=== PATIENT | female | born 1985 | race Caucasian/White ===

== ENCOUNTER 2018-04-10 19:25 | Inpatient (IN) | payer OTHER ==
[~2018-04-10] VITALS: Ht 165.1 cm; Wt 135.6 kg
[2018-04-10] MEDS ORDERED: FAMOTIDINE(*) 20MG/50ML PREMIX 50 ML IVPB PRN (19:28)
[2018-04-10] MEDS ORDERED: METOCLOPRAMIDE 10 MG/2 ML SDV IVP PRN (19:30)
[2018-04-10] MEDS ORDERED: LIDOCAINE/SOD BICARB 8.4% SYR SC PRN (19:30)
[2018-04-10] MEDS ORDERED: LIDOCAINE 1% LOCAL 300 MG/30ML INJ PRN (19:30)
[2018-04-10] MEDS ORDERED: TERBUTALINE SULF 1 MG/ML VIAL SUBQ PRN (19:30)
[2018-04-10] MEDS ORDERED: FLUSH 10 ML SYR IVP PRN (19:30)
[2018-04-10 20:00] VITALS: BP 126/60; Ht 165.1 cm; Wt 135.6 kg
[2018-04-10] MEDS ORDERED: DLR(*) 1000 ML BAG 1,000 ML IV PRN (20:43)
[2018-04-10] MEDS ORDERED: DINOPROSTONE 10 MG INSERT PV ONE (20:45)
[2018-04-10 20:46] LABS: PLATELET COUNT, AUTOMATED 257 K/uL (150-450)
[2018-04-10] MEDS: LR(*) 1000 ML BAG 1,000 ML IV PRN (21:06)
[2018-04-10] MEDS ORDERED: PREN-127 PO (22:42)
[2018-04-11] MEDS: LR(*) 1000 ML BAG 1,000 ML IV PRN ×2 (07:47→14:32)
[2018-04-11] MEDS ORDERED: OXYTOCIN 30 UNIT/D5LR 500 ML 500 ML IV PRN (08:02)
[2018-04-11] MEDS ORDERED: BUPIVACAINE 0.25% MPF INJ EPI PRN (10:35)
[2018-04-11] MEDS ORDERED: LIDOCAINE/PF 2% 200MG/10ML AMP 200 MG/10 ML AMPUL EPI PRN (10:35)
[2018-04-11] MEDS ORDERED: EPIDURAL KEYS XX PRN (10:35)
[2018-04-11] MEDS ORDERED: FENTANYL/ROPIVACAINE 100 ML BAG EPI PRN (10:35)
[2018-04-11] MEDS ORDERED: BUPIVACAINE 0.5% INJ 30ML VIAL EPI PRN (10:35)
[2018-04-11] MEDS ORDERED: LIDO/EPI 2% MPF 1:200,000 20ML EPI PRN (10:35)
--- NOTE | 2018-04-11 10:38 | History & Physical ---
History of Present Illness Age of Patient: 32 : 1 Para or TPAL: 0 EDC per LMP: Apr 14, 2018 Estimated Gestational Age: 37 Chief Complaint Labor induction History of Present Illness Presented last night for IOL due to increasing BP. complicated by obesity with a BMI 41, anti-S AB positive but monthly titers were negative, RH negative. Was here last night with cervix 1.5 cm and Cervidil placed. Past Med ical, Surgical, Family and Obstetric Histories reviewed. Please see ACOG chart. History Allergies: Coded Allergies: BEE STINGS (Verified Allergy, Severe, ANAPHYLAXIS, 04/10/18) Med Rec Home Meds Reported Medications Vits W-Ca,Fe,Fa(<1MG) ( VITAMINS) 1 Each Tablet, 1 EACH PO DAILY, TAB 04/10/18 Review of Systems All Systems Reviewed/Normal: Yes, Except as Noted Exam General Exam Vital Signs Vital Signs Date Time Temp Pulse Resp B/P (MAP) Pulse Ox O2 Delivery O2 Flow Rate FiO2 04/10/18 20:00 98.4 108 20 126/60 (82) 93 Room Air General Apperance: Alert/Awake/No Acute Distress Neuro: No Gross deficits Eyes: Normal Extraocular Movement & Vison Cardiovascular: Regular Rate and Rhythm Respiratory: No Respiratory Distress Abdomen: Soft, Non-Tender, Non-Distended Integumentary: Skin Intact without Lesions or Rash Psychological: Alert & Oriented X3, Appropriate Mood & Affect Cervical Dialation: 4 Cervical Effacement (%): 80 Cervical Consistency: Soft Cervical Position: Anterior Station: -2 Presentation: Vertex Uterine Contractions(Q min): 2 Uterine Contraction Strength: Moderate Fetus Heart Tone Variabilty: Moderate FHT Accelerations: 15X15 FHT Category: I Medical Decision Making Data Points Result Diagram: 04/10/18201904/10/182019 VTE Prophylasis: Adult Deep Vein Thrombosis/Pulmonary: No Assessment and Plan EMERGENCY DEPARTMENT TECHNICIAN Plan: Routine Labor/Induct Care Problems: (1) Obesity, morbid, BMI 40.0-49.9 Assessment & Plan: Type and screen blood. Will have uterotonics ready for risk of PP hemorrhage. (2) Gestational hypertension Assessment & Plan: Has been transitioned to Pitocin and advancing. Difficult to doppler FHTs so scalp electrode placed with AROM. Clear fluid noted with chunks of vernix. Expecting . Problem Qualifiers (1) Gestational hypertension: Trimester: third trimester Qualified Codes: O13.3 - Gestational [- induced] hypertension without significant proteinuria, third trimester AMADOR ZHENG MD Apr 11, 2018 10:38
[2018-04-11] MEDS: fentaNYL CITR 100 MCG/2 ML AMP IVP PRN ×2 (11:42→13:16)
--- NOTE | 2018-04-11 13:31 | Anesthesia OB Pre-Anes Eval ---
History of Present Illness Anesthesia Start Time: 11:54 OB Anesthesia Diagnosis: induction - elective EDC: Apr 14, 2018 : 1 Para: 0 Pain Ratin Heart Tones: 156 Result Diagram: 04/10/18201904/10/182019 Height (Inches): 65.00 Weight (Pounds): 299 BMI Calculated: 49.75 Past Medical History Medical History: no pertinent history Surgical History: cholecystectomy, tonsillectomy Previous Anesthesia: general, epidural (1st ) Attended Childbirth Classes?: No Hx Anesthesia Reactions: No Hx Family Anesthesia Reaction: No Current Medications: pitocin Home Meds Reported Medications Vits W-Ca,Fe,Fa(<1MG) ( VITAMINS) 1 Each Tablet, 1 EACH PO DAILY, TAB 04/10/18 Allergies: Coded Allergies: BEE STINGS (Verified Allergy, Severe, ANAPHYLAXIS, 04/10/18) Anesthesia OB ROS Airway Class: ll GI ROS: clear liquids Last Solids Date: Apr 11, 2018 Last Solids Time: 05:30 ASA Classification: 2 Assessment and Plan Anesthesia Plan: SHERI SMITH CRNA Apr 11, 2018 13:31
--- NOTE | 2018-04-11 13:33 | Procedure Note ---
Anesthetic Placement Note Anesthesia Plan: LEB Permit for Anesthesia Signed: Yes Anesthesia Technique: Patient Sitting Anesthesia Prep: Betadine Interspace: L 3-4 Local Anesthetic: 1% Lidocaine, 25 Gauge Needle Amount Local - cc's: 3 Anesthesia Needle: 17g Touhy/Schliff Anesthesia Attempts: 1 Loss of Resistance: Normal Saline Depth of YUSUF (cm): 6 Epidural Needle Placement: No CSF, No Blood, No Parasthesia Catheter Insertion (cm): 13 Catheter Type: Avendano - Spring Wound Epidural Dressing: Tegaderm, Tape, Adhesive [place] Anesthesia Tray: Lot Number ([id number]), Expiration Date (2019-03-18), Reference Number ([id number]) SHERI RAMSEY CRNA Apr 11, 2018 13:33
--- NOTE | 2018-04-11 13:34 | Anesthesia Progress Note ---
Progress/Maintenance Pain Intensity: 0 Pump Rate (ML/HR): 6 (from 10 to 6) Motor Level: Bending Knees-Bilateral Dilatation: 4 Position: Left, Tilt Anesthesia Treatment: patient BP treat w/ ephedrine. base rate from 10 to 6 ml/hr Assessment and Plan Anesthesia Plan: SHERI SMITH SCARF GLUER Apr 11, 2018 13:34
--- NOTE | 2018-04-11 13:37 | Procedure Note ---
Anesthetic Placement Note Anesthesia Plan: LEB Anesthesia Medications: Epidural Test Dose: 1.5 Lido/Epi (1:200,000), Dose - mL (3), Time (1221), Negative Epidural Loading Dose: 0.25% Marcaine, Dose - ml (10), Time (1227 and 1230) Epidural Infusion: 0.2% Ropivicaine, With Fentanyl 2mcg/ml, Start Time: (1234) Epidural Pump Setting: Bolus Dose - mL (5), Lockout - Minutes (15), Maintenance Rate - mL/hr (10), Maximum per Hour - mL (30) Complications: None SHERI RAMSEY CRNA Apr 11, 2018 13:37
--- NOTE | 2018-04-11 14:17 | Anesthesia Progress Note ---
Progress/Maintenance Pump Rate (ML/HR): 4 (6 ml to 4. patient not feeling contractions.) Position: Right, Tilt Assessment and Plan Anesthesia Plan: SHERI SMITH CRNA Apr 11, 2018 14:17
[2018-04-11] MEDS: fentaNYL CITR 100 MCG/2 ML AMP IT PRN ×2 (14:27→15:00)
--- NOTE | 2018-04-11 15:49 | Anesthesia OB Pre-Anes Eval ---
History of Present Illness Anesthesia Start Time: 14:27 OB Anesthesia Diagnosis: induction - elective Current Complication: obesity EDC: Apr 14, 2018 : 1 Para: 0 Pain Ratin Heart Tones: 147 Result Diagram: 04/10/18201904/10/182019 Height (Inches): 65.00 Weight (Pounds): 299 BMI Calculated: 49.75 Past Medical History Medical History: obesity Surgical History: noncontributory (wisdom teeth) Previous Anesthesia: general Attended Childbirth Classes?: No Hx Anesthesia Reactions: No Hx Family Anesthesia Reaction: No Current Medications: pitocin Home Meds Reported Medications Vits W-Ca,Fe,Fa(<1MG) ( VITAMINS) 1 Each Tablet, 1 EACH PO DAILY, TAB 04/10/18 Allergies: Coded Allergies: BEE STINGS (Verified Allergy, Severe, ANAPHYLAXIS, 04/10/18) Anesthesia OB ROS Neurological: No migraines/headaches, No seizures, No neuropathy, No other Pulmonary: No asthma, No smoker (pks/day/yrs), No other Airway Class: ll Cardiovascular ROS: No edema, No arrhythmia, No other GI ROS: clear liquids Last Solids Date: Apr 10, 2018 Last Solids Time: 17:30 ROS: No Herpes, No STD(s), No Liver Disease, No Renal Disease, No Other Endocrine ROS: No diabetes, No gestational diabetes, No thyroid disorder, No other Musculoskeletal ROS: No low back pain, No low back injury, No scoliosis, No other ASA Classification: 3 (Obesity) Assessment and Plan Anesthesia Plan: SHERI SMITH CRNA Apr 11, 2018 15:49
--- NOTE | 2018-04-11 15:52 | Procedure Note ---
Anesthetic Placement Note Anesthesia Plan: LEB Permit for Anesthesia Signed: Yes Anesthesia Technique: Patient Sitting Anesthesia Prep: Betadine Interspace: L 3-4 Local Anesthetic: 1% Lidocaine, 25 Gauge Needle Amount Local - cc's: 3 Anesthesia Needle: 17g Touhy/Schliff Anesthesia Attempts: 1 Loss of Resistance: Normal Saline Depth of YUSUF (cm): 6 Epidural Needle Placement: No CSF, No Blood, No Parasthesia Catheter Insertion (cm): 13 Catheter Type: Avendano - Spring Wound Epidural Dressing: Tegaderm, Tape, Adhesive [place] Anesthesia Tray: Lot Number ([id number]), Expiration Date (2019-04-18), Reference Number ([id number]) Anesthesia Medications: Epidural Test Dose: 1.5 Lido/Epi (1:200,000), Dose - mL (3), Time (1449), Negative Epidural Loading Dose: 0.25% Marcaine, Dose - ml (10), Time (1456) Epidural Infusion: 0.2% Ropivicaine, With Fentanyl 2mcg/ml, Start Time: (1503) Epidural Pump Setting: Bolus Dose - mL (5), Lockout - Minutes (15), Maintenance Rate - mL/hr (12), Maximum per Hour - mL (32) Complications: None SHERI RAMSEY CRNA Apr 11, 2018 15:52
--- NOTE | 2018-04-11 16:21 | Anesthesia Progress Note ---
Progress/Maintenance Anesthesia Note Date: Apr 11, 2018 Anesthesia Note Time: 16:15 Pain Intensity: 0 Pump: On Pump Rate (ML/HR): 12 Sensory Level: T-2 Motor Level: Other (Both legs very heavy) Dilatation: 4 Assessment and Plan Assessment Assumed care at 1600. Level of epidural T-2 assessed with alcohol. Pump rate turn to 1/hr until pt. does feel contractions again. СЕРГЕЙ CUELLO CRNA Apr 11, 2018 16:21
--- NOTE | 2018-04-11 16:45 | Anesthesia Progress Note ---
Progress/Maintenance Anesthesia Note Date: Apr 11, 2018 Anesthesia Note Time: 16:40 Pain Intensity: 4 Pump: On Pump Rate (ML/HR): 1 Sensory Level: T-4 Dilatation: 4 Position: Right, Tilt Assessment and Plan Assessment Pt. states she is feeling contractions, rates them as a "4". States she pushed her epidural button and notes a little improvement. Observed pt. thru several contractions. Unable to note any facial expressions with contractions. States she feels "pressure". СЕРГЕЙ CUELLO CRNA Apr 11, 2018 16:44
--- NOTE | 2018-04-11 17:33 | Anesthesia Progress Note ---
Progress/Maintenance Anesthesia Note Date: Apr 11, 2018 Anesthesia Note Time: 17:20 Pain Intensity: 6 Pump: On Pump Rate (ML/HR): 5 Dilatation: 10 Drug Bolus: 0.5% Marcaine (5 ml), Other (Fentenyl 50 mcgs) Anesthesia Treatment: Bolus given and rate of pump increased to 5 ml. Assessment and Plan Assessment Pt. c/o very strong pressure and wanting to push. Bolus given and requested RN to recheck pt. Family working to help pt. with slow, deep respirations. СЕРГЕЙ CUELLO CRNA Apr 11, 2018 17:33
[2018-04-11] MEDS ORDERED: MISOPROSTOL 200 MCG TAB PR ONE (19:00)
[2018-04-11] MEDS ORDERED: HYDROCORTISONE 2.5% CR 30GM TB PR PRN (19:25)
[2018-04-11] MEDS ORDERED: GLYCERIN/WITCH HAZEL LEAF 1 PK TOP PRN (19:25)
[2018-04-11] MEDS ORDERED: INFLUENZA VIRUS VAC 0.5 ML SYR IM ONLY ONE (19:25)
[2018-04-11] MEDS ORDERED: ACETAMINOPHEN 325 MG TAB PO PRN (19:25)
[2018-04-11] MEDS ORDERED: MAGNESIUM HYDROXIDE* 30ML UDCP PO PRN (19:25)
[2018-04-11] MEDS ORDERED: BENZOCAINE 20% 60 ML BTL TP PRN (19:25)
[2018-04-11] MEDS ORDERED: LANOLIN OINT 7 GM TUBE TP PRN (19:25)
--- NOTE | 2018-04-11 19:35 | OB Delivery Note ---
Delivery Note Vaginal Delivery Type: Forceps, Low (closed simpsons) Delivery Date: Apr 11, 2018 Delivery Time: 18:57 Estimated Gestational Age(wks): 39.4 Delivery Anesthesia: Epidural Sex: Male [place] Apgars: 1 Minute (7), 5 Minute (9) Repair Needed: Laceration, 2nd Degree Estimated Blood Loss: 480 Delivery Complications: Laceration, Other (mild uterine atony) Notes: Pt presented for IOL due to rising BP with gestational hypertension. Was 1.5 cm on arrival and Cervidil placed. By morning was 2 cm and Pitocin started. 4 cm by 1020, 9 cm by 1700 and complete at 1730. Pushing and becoming fatigued. Exam reveals LOP, +2/3 station and moody catheter in place. Variable decelerations noted. Informed consent obtained for forceps delivery. Closed Harris forceps easily applied in LOP position. With next contraction, assistance provided and head delivered over second degree laceration. Tight nuchal cord clamped and cut. Maternal push effected delivery of anterior shoulder and remainder delivered without difficulty. Cord sample obtained. Placenta delivered spontaneous and intact. Moderate bleeding noted with uterine atony that would respond to massage. Cytotec 800 mcg placed rectally. Repair with 2-0 chromic without complication. Sales And Service Officer in Attendence: No Copies to: AMADOR ZHENG MD ; AMADOR ZHENG MD Apr 11, 2018 19:35
--- NOTE | 2018-04-11 19:44 | Anesthesia Progress Note ---
Progress/Maintenance Anesthesia Note Date: Apr 11, 2018 Anesthesia Note Time: 19:40 Pain Intensity: 0 Pump: Off Sensory Level: T-12 Motor Level: Bending Knees-Bilateral Dilatation: 10 Position: Semi-Fowlers Drug Bolus: 0.5% Marcaine (5 ml), Other (Fentenyl 50 mcgs) Assessment and Plan Assessment Manual bolus given prior to use of forceps per Dr. Franco. Pt. was able to push well and had good tolerance of delivery. Additional 0.5% Marcaine plain given with repair work. Empty syringe attached to epidural catheter and RN agrees to remove with ambulation. Anesthesia Stop Day: Apr 11, 2018 Anesthesia Stop Time: 19:30 СЕРГЕЙ CUELLO CRNA Apr 11, 2018 19:44
[2018-04-11] MEDS: APAP/HYDROCODONE 325/5 TAB PO PRN (20:04)
[2018-04-11] MEDS: DOCUSATE CALCIUM 240 MG CAP PO SCH (20:04)
[2018-04-11] MEDS: IBUPROFEN 800 MG TAB PO SCH (20:04)
[2018-04-11 20:17] VITALS: BP 136/62
[2018-04-11 21:22] VITALS: BP 132/62
[2018-04-11 21:27] VITALS: BP 134/65
[2018-04-11 23:21] VITALS: BP 121/70
[2018-04-12 03:30] VITALS: BP 135/83
[2018-04-12] MEDS: IBUPROFEN 800 MG TAB PO SCH ×3 (05:35→21:11)
[2018-04-12 07:45] VITALS: BP 136/73
[2018-04-12] MEDS: DOCUSATE CALCIUM 240 MG CAP PO SCH ×2 (08:40→21:11)
[2018-04-12] MEDS: APAP/HYDROCODONE 325/5 TAB PO PRN ×2 (08:41→17:00)
--- NOTE | 2018-04-12 11:39 | OB/GYN Progress Note ---
OB Subjective Progress Notes Subjective Doing well. Pain controlled and ambulating well. Voiding well. Bleeding light. GI: NEG Nausea : Voiding Well Pain: Mild OB Objective Physical Exam Vital Signs Date Time Temp Pulse Resp B/P (MAP) Pulse Ox O2 Delivery O2 Flow Rate FiO2 04/12/18 07:45 97.8 65 18 136/73 (94) 95 Room Air Intake and Output 04/12/18 07:00 Intake Total 3900 ml Output Total 1725 ml Balance 2175 ml IV Total 3900 ml Output Urine Total 1725 ml # Voids 2 General Appearance: Alert/Awake/No Acute Distress Neurological: No Gross deficits Eyes: Normal Extraocular Movement & Vison Respiratory: No Respiratory Distress, Clear to Auscultation Abdomen: Soft, Non-Tender, Non-Distended, Fundus Firm, Non-Tender Integumentary: Skin Intact without Lesions or Rash Psychological: Alert & Oriented X3, Appropriate Mood & Affect Result Diagram: 04/12/18 0550 04/10/182019 Assessment and Plan GENERAL MEDICAL PRACTITIONER Plan: Routine Post- Care, Discharge Home Tomorrow Problems: (1) Obesity, morbid, BMI 40.0-49.9 (2) Gestational hypertension (3) care and examination immediately after delivery Problem Qualifiers (1) Gestational hypertension: Trimester: third trimester Qualified Codes: O13.3 - Gestational [- induced] hypertension without significant proteinuria, third trimester AMADOR ZHENG MD Apr 12, 2018 11:39
[2018-04-12 11:46] VITALS: BP 142/71
[2018-04-12 15:38] VITALS: BP 132/93
[2018-04-12 20:05] VITALS: BP 132/61
[2018-04-13 03:01] VITALS: BP 110/55
[2018-04-13] MEDS: IBUPROFEN 800 MG TAB PO SCH (05:05)
[2018-04-13 07:54] VITALS: BP 132/62
[2018-04-13] MEDS: DOCUSATE CALCIUM 240 MG CAP PO SCH (08:51)
[2018-04-13] MEDS: APAP/HYDROCODONE 325/5 TAB PO PRN (08:52)
[2018-04-13] MEDS ORDERED: DIPHTH/TETANUS/ACEL. PERTUSSIS IM ONLY ONE (09:00)
[2018-04-13] MEDS ORDERED: MEASLES,MUMP,RUBELLA VAC 0.5ML SUBQ ONE (09:00)
--- NOTE | 2018-04-13 10:02 | Anesthesia Post Eval Note ---
Anesthesia Post Eval Note Vital Signs Date Time Temp Pulse Resp B/P (MAP) Pulse Ox O2 Delivery O2 Flow Rate FiO2 04/13/18 07:54 97.8 70 16 132/62 (85) 94 Room Air Pt able to participate in Eval: Yes Cardiovascular Status: Satisfactory Respiratory Status: Satisfactory Pain Managment: Satisfactory PO Nausea/Vomiting: Satisfactory Temperature Management: Satisfactory Mental Status: Alert, Oriented X3 Post-Op Hydration Status: Satisfactory, Tolerating PO Well, Voiding w/o Difficulty Anesthesia Type: LEB Anesthesia Tolerance: Tolerated procedure well without apparent anesthetic complications. LP site clear, no redness or edema. Denies headache or any residual paresthesia. Vital Signs Stable, Patient comfortable and condition stable. СЕРГЕЙ CUELLO CRNA Apr 13, 2018 10:02
--- NOTE | 2018-04-13 11:28 | OB/GYN Progress Note ---
OB Subjective Progress Notes Subjective Doing well. Pain controlled and ambulating and voiding well. Ready to go home. GI: NEG Nausea : Voiding Well Pain: Mild OB Objective Physical Exam Vital Signs Date Time Temp Pulse Resp B/P (MAP) Pulse Ox O2 Delivery O2 Flow Rate FiO2 04/13/18 07:54 97.8 70 16 132/62 (85) 94 Room Air Intake and Output 04/13/18 07:00 Intake Total 1320 ml Balance 1320 ml Intake Oral 1320 ml # Voids 4 # Bowel Movements 1 General Appearance: Alert/Awake/No Acute Distress Neurological: No Gross deficits Eyes: Normal Extraocular Movement & Vison Respiratory: No Respiratory Distress, Clear to Auscultation Abdomen: Soft, Non-Tender, Non-Distended, Fundus Firm, Non-Tender Integumentary: Skin Intact without Lesions or Rash Psychological: Alert & Oriented X3, Appropriate Mood & Affect Result Diagram: 04/12/18 0550 04/10/182019 Assessment and Plan WAY INSPECTOR Plan: Discharge Home Today Problems: (1) Obesity, morbid, BMI 40.0-49.9 (2) Gestational hypertension (3) care and examination immediately after delivery Problem Qualifiers (1) Gestational hypertension: Trimester: third trimester Qualified Codes: O13.3 - Gestational [- induced] hypertension without significant proteinuria, third trimester AMADOR ZHENG MD Apr 13, 2018 11:28
[2018-04-13] MEDS ORDERED: IBUP800T37 PO (11:29)
--- NOTE | 2018-04-13 11:31 | OB/GYN Discharge Summary ---
Discharge Summary Reason for Hosp/Final Diag: (1) Obesity, morbid, BMI 40.0-49.9 (2) Gestational hypertension (3) care and examination immediately after delivery [place] Vital Signs Vital Signs Date Time Temp Pulse Resp B/P (MAP) Pulse Ox O2 Delivery O2 Flow Rate FiO2 04/13/18 07:54 97.8 70 16 132/62 (85) 94 Room Air Weight (Pounds): 299 Result Diagram: 04/12/18 0550 04/10/182019 Condition: Improved Discharge: Home, Self [facility] Meds Reported Medications Vits W-Ca,Fe,Fa(<1MG) ( VITAMINS) 1 Each Tablet, 1 EACH PO DAILY, TAB 04/10/18 Follow up Referrals: PAEDIATRIC SURGEON - In 6 Weeks @ [facility] with AMADOR FRANCO MD Follow up with: Dr. Franco [phone] Follow up in: 6 wks PP or PO Discharge Diet: As Tolerates Discharge Activity: As Tolerates, No Heavy Lifting x 6 wks, No Heavy Lifting > 10lb, Pelvic Rest Copies to: AMADOR FRANCO MD ; Problem Qualifiers (1) Gestational hypertension: Trimester: third trimester Qualified Codes: O13.3 - Gestational [-induced] hypertension without significant proteinuria, third trimester AMADOR FRANCO MD Apr 13, 2018 11:31
== END 2018-04-13 12:00 | disposition home or self-care (01) | DRG 775 ==
LOC: OB 19:25
PROVIDERS: ADMIT Obstetrics & Gynecology; ATTEND Obstetrics & Gynecology
PROC: 3E0P7VZ Introduction of Hormone into Female Reproductive, Via Natural or Artificial Opening (ICD-10-PCS; 2018-04-10)
PROC: 10D07Z3 Extraction of Products of Conception, Low Forceps, Via Natural or Artificial Opening (ICD-10-PCS; principal; 2018-04-11)
PROC: 0KQM0ZZ Repair Perineum Muscle, Open Approach (ICD-10-PCS; 2018-04-11)
PROC: 10907ZC Drainage of Amniotic Fluid, Therapeutic from Products of Conception, Via Natural or Artificial Opening (ICD-10-PCS; 2018-04-11)
PROC: 4A0H74Z Measurement of Products of Conception, Cardiac Electrical Activity, Via Natural or Artificial Opening (ICD-10-PCS; 2018-04-11)
DX: O99.214 Obesity complicating childbirth (principal); Z68.41 Body mass index [BMI] 40.0-44.9, adult; O36.0130 Maternal care for anti-D [Rh] antibodies, third trimester, not applicable or unspecified; O13.4 Gestational [pregnancy-induced] hypertension without significant proteinuria, complicating childbirth; O69.1XX0 Labor and delivery complicated by cord around neck, with compression, not applicable or unspecified; O70.1 Second degree perineal laceration during delivery; O62.2 Other uterine inertia; O76 Abnormality in fetal heart rate and rhythm complicating labor and delivery; E66.01 Morbid (severe) obesity due to excess calories; Z37.0 Single live birth; Z3A.39 39 weeks gestation of pregnancy
CPT/HCPCS: 36415; 82040; 82247; 82310; 82374; 82435; 82565; 82570; 82947; 83615; 84075; 84132; 84155; 84156; 84295; 84450; 84460; 84520; 84550; 85025; 85027; 86850; 86870; 86900; 86901; 86902; 86920; 90471; 90472; 90707; 90715; J3010; J7120; S0020